=== PATIENT | female | born 1940 | race Caucasian/White ===

== ENCOUNTER 2017-02-06 00:15 | Day surgery (SDC) | payer MEDICARE, OTHER ==
[~2017-02-06] VITALS: Ht 152.4 cm; Wt 95.0 kg
[~2017-02-06 00:15] MED LIST: ASPI-973 PO; HYDR25TA4 PO; METO25TA6 PO
[2017-02-06] MEDS ORDERED: 0.9% Sodium Chloride 1,000 ML IV SCH (06:00)
[2017-02-06] MEDS ORDERED: Sodium Chloride LOK Flush 10 mL Syringe IV PRN (06:00)
[2017-02-06] MEDS ORDERED: Lactated Ringer's 1,000 ML IV ONE (06:00)
[2017-02-06] MEDS ORDERED: fentaNYL-PF 50 mCg/mL 2 mL Inj IVPUSH PRN (06:00)
[2017-02-06 08:48] VITALS: BP 133/67; PULSE 67; RESP 16; O2SAT 96
[2017-02-06 10:07] VITALS: BP 115/58; PULSE 60; RESP 14; O2SAT 97
[2017-02-06 10:17] VITALS: BP 123/56; PULSE 63; RESP 16; O2SAT 96
[2017-02-06 10:25] VITALS: BP 131/62; PULSE 67; RESP 14; O2SAT 97
--- NOTE | 2017-02-06 11:07 | ENDO ---
[address] [address] ENDOSCOPY PROCEDURE PATIENT: ADDI GARCIA : 1940 MR#: [id number] ADMIT: 02/06/2017 JOB ID: [id number] DATE: 02/06/2017 PROCEDURE: Colonoscopy. INDICATIONS: A 76-year-old female who reports for colon cancer screening. No family history of colon cancer. EQUIPMENT: [employer]. SEDATION: 1. Versed 3 mg. 2. Fentanyl 75 mcg. COMPLICATIONS: None identified. BOWEL PREPARATION: Very adequate. PROCEDURE INFO: After the risks and benefits were explained, written and verbal informed consent was obtained. The patient was brought into the endoscopy suite and placed in left lateral decubitus position. Sedation was achieved as above. It digital rectal examination disclosed internal and external nonbleeding, nonthrombosed hemorrhoids. The scope was introduced into the rectum and advanced to the cecum as identified by the appendiceal orifice and ileocecal valve. The scope was slowly withdrawn to carefully examine the mucosa for any defects or lesions. Multiple direct views were made through the dentate line for exclusion of pathology. The colon was decompressed. The scope removed from the patient who tolerated the procedure well. FINDINGS: No significant polyps, mass lesions, or inflammatory features identified throughout. ENDOSCOPIC DIAGNOSES: 1. Hemorrhoids. 2. Otherwise visually unremarkable colonoscopy to cecum. RECOMMENDATIONS: Repeat colon cancer screening and colonoscopy would typically be recommended for 10 years' time. This places the patient at age 86 and therefore certainly would not be required.
== END 2017-02-06 23:59 | disposition home or self-care (01) ==
LOC: END 00:15
PROVIDERS: ATTEND Internal Medicine Gastroenterology
DX: Z12.11 Encounter for screening for malignant neoplasm of colon (principal); K64.8 Other hemorrhoids; I10 Essential (primary) hypertension
CPT/HCPCS: 99153; G0121; G0500; J2250; J3010; J7030